=== PATIENT | female | born 1980 | race Caucasian/White ===

== ENCOUNTER 2018-05-30 12:57 | Emergency (ER) | payer OTHER ==
[2018-05-30 13:39] LABS: ABSOLUTE EOSINOPHILS # (AUTO) 0.1 10^3/uL (0.0-0.6); ABSOLUTE LYMPHOCYTES (AUTO) 1.4 10^3/uL (0.5-4.7); ABSOLUTE MONOCYTES (AUTO) 0.5 10^3/uL (0.1-1.4); ABSOLUTE NEUT (AUTO) 7.7 10^3/uL (1.7-8.2); BASOPHILS % (AUTO) 0.2 % (0-2); EOSINOPHILS % (AUTO) 1.3 % (0-6); HEMATOCRIT 42.3 % (36.0-47.0); HEMOGLOBIN 14.2 g/dL (12.0-15.5); LYMPHOCYTES % (AUTO) 14.6 % (13-45); MEAN CORPUSCULAR HEMOGLOBIN 29.4 pg (27.0-33.4); MEAN CORPUSCULAR HGB CONC 33.6 g/dL (32.0-36.0); MEAN CORPUSCULAR VOLUME 88 fl (80-97); MONOCYTES % (AUTO) 5.1 % (3-13); PLATELET COUNT 102 10^3/uL (150-450); RED BLOOD COUNT 4.82 10^6/uL (3.72-5.28); RED CELL DISTRIBUTION WIDTH 13.6 % (11.5-14.0); SEGMENTED NEUTROPHILS % (AUTO) 78.8 % (42-78); TOTAL CELLS COUNTED % (AUTO) 100 %; WHITE BLOOD COUNT 9.7 10^3/uL (4.0-10.5)
[2018-05-30 14:06] LABS: ALANINE AMINOTRANSFERASE 31 U/L (9-52); ALBUMIN 3.2 g/dL (3.5-5.0); ALKALINE PHOSPHATASE 51 U/L (38-126); ANION GAP 10 (5-19); ASPARTATE AMINO TRANSFERASE 27 U/L (14-36); BILIRUBIN,TOTAL 0.6 mg/dL (0.2-1.3); BLOOD UREA NITROGEN 11 mg/dL (7-20); CALCIUM 8.3 mg/dL (8.4-10.2); CARBON DIOXIDE 25 mmol/L (22-30); CHLORIDE 106 mmol/L (98-107); GLUCOSE 86 mg/dL (75-110); POTASSIUM 3.7 mmol/L (3.6-5.0); SODIUM 141.4 mmol/L (137-145); TOTAL PROTEIN 5.5 g/dL (6.3-8.2)
--- NOTE | 2018-05-30 14:27 | RADIOLOGY REPORT (SQ) ---
EXAM DESCRIPTION: CT HEAD WITHOUT COMPLETED DATE/TIME: 05/30/2018 2:16 pm REASON FOR STUDY: seizure first time COMPARISON: None. TECHNIQUE: Axial images acquired through the brain without intravenous contrast. Images reviewed wi th bone, brain and subdural windows. Additional sagittal and coronal reconstructions were generated. Images stored on PACS. All CT scanners at this facility use dose modulation, iterative reconstruction, and/or weight based d osing when appropriate to reduce radiation dose to as low as reasonably achievable (ALARA). [facility]: Dose Right [facility]: CareDose [facility]: Dose Right [facility]: Teradose 4D [facility]: Missingames RADIATION DOSE: CT Rad equipment meets quality standard of care and radiation dose reduction techniq ues were employed. CTDIvol: 53.2 mGy. DLP: 1150 mGy-cm. mGy. LIMITATIONS: None. FINDINGS: VENTRICLES: Normal size and contour. CEREBRUM: No masses. No hemorrhage. No midline shift. No evidence for acute infarction. Normal gra y/white matter differentiation. No areas of low density in the white matter. CEREBELLUM: No masses. No hemorrhage. No alteration of density. No evidence for acute infarction. EXTRAAXIAL SPACES: No fluid collections. No masses. ORBITS AND GLOBE: No intra- or extraconal masses. Normal contour of globe without masses. CALVARIUM: No fracture. PARANASAL SINUSES: No fluid or mucosal thickening. SOFT TISSUES: No mass or hematoma. OTHER: No other significant finding. IMPRESSION: NORMAL BRAIN CT WITHOUT CONTRAST. EVIDENCE OF ACUTE STROKE: NO. COMMENT: Quality ID # [id number]: Final reports with documentation of one or more dose reduction techniques (e.g., Automated exposure control, adjustment of the mA and/or kV according to patient size, use of iterative reconstruction technique) TECHNICAL DOCUMENTATION: JOB ID: [id number] inContact- All Rights Reserved Reading location - IP/workstation name: [email or web address]
--- NOTE | 2018-05-30 14:51 | ER Document Report ---
ED General - General Chief Complaint: Probable Seizure Stated Complaint: GENERAL WEAKNESS Time Seen by Provider: 05/30/18 13:17 Mode of Arrival: Stretcher Information source: Patient TRAVEL OUTSIDE OF THE [place] IN LAST 30 DAYS: No - HPI Patient complains to provider of: weakness Onset: Other - This is a healthy 37-year-old female who presents after having donated plasma today, while she was donating plasma she had an episode while they were attempting to initiate administration of fluids that she became lightheaded, subsequently she passed out she was told by onlookers that she had an episode of shaking thereafter. She regained consciousness slowly became alert. She is never had any episodes like this in the past except for a single episode of fainting many years prior. She is never had any other health problems , denies any history of seizure, denies any history of stroke, denies any history of thromboembolic events in the past, no arrhythmias or known cardiac issues. She denies any fevers chills shortness of breath abdominal pain diarrhea constipation dysuria did not bite her tongue did not lose continence of her urine. - Related Data Allergies/Adverse Reactions: No Known Allergies Allergy (Verified 05/30/18 13:33) Past Medical History - General Information source: Patient - Social History Smoking Status: Never Smoker Chew tobacco use (# tins/day): No Frequency of alcohol use: Rare Drug Abuse: None Family History: None Patient has suicidal ideation: No Patient has homicidal ideation: No Renal/ Medical History: Denies: Hx Peritoneal Dialysis Review of Systems - Review of Systems -: Yes All other systems reviewed and negative Physical Exam - Vital signs Vitals: Temp Pulse Resp BP Pulse Ox 97.5 F 89 16 121/75 100 05/30/18 13:04 05/30/18 13:04 05/30/18 13:04 05/30/18 13:04 05/30/18 13:04 - General General appearance: Appears well In distress: None - HEENT Head: Normocephalic Eyes: Normal Conjunctiva: Normal Cornea: Normal Extraocular movements intact: Yes Eyelashes: Normal Pupils: PERRL - Respiratory Respiratory status: No respiratory distress Chest status: Nontender Breath sounds: Normal Chest palpation: Normal - Cardiovascular Rhythm: Regular Heart sounds: Normal auscultation Murmur: No - Abdominal Inspection: Normal Distension: No distension Tenderness: Nontender Organomegaly: No organomegaly - Back Back: Normal - Extremities General upper extremity: Normal inspection, Nontender, Normal ROM, Normal strength General lower extremity: Normal inspection, Nontender, Normal ROM, Normal strength - Neurological Neuro grossly intact: Yes Cognition: Normal Orientation: AAOx4 [place] Coma Scale Eye Opening: Spontaneous [place] Coma Scale Verbal: Oriented [place] Coma Scale Motor: Obeys Commands [place] Coma Scale Total: 15 Speech: Normal Cranial nerves: Normal Cerebellar coordination: Normal Motor strength normal: LUE, RUE, LLE, RLE Additional motor exam normals: Equal time clerk Babinski reflex: Normal (flexor plantar) Sensory: Normal - Psychological Associated symptoms: Normal affect Course - Re-evaluation Re-evalutation: 05/30/18 16:17 37-year-old female that presents for evaluation of an episode of syncope. She is neurologically intact at this time though there was some evidence that she may have shaken after the event. In examination she is however well-appearing. She is at her normal level of functioning. Never had anything like this in the past. We will obtain EKG, CT of the head labs. EKG is nondiagnostic CT of the head is normal labs and chemistry are reassuring. Given that this patient functionally has no obvious evidence for an underlying cause believe it is likely related to her donation of plasma which likely caused her to be briefly hypotensive or vagal. She is neurologically intact at this time, passed a trial of ambulation without any assistance in the emergency department. We will plan for this patient undergo discharge with return precautions and encouraged follow-up with her primary physician. - Vital Signs Vital signs: Temp Pulse Resp BP Pulse Ox 98.4 F 89 22 H 100/68 97 05/30/18 14:52 05/30/18 13:04 05/30/18 14:52 05/30/18 14:52 05/30/18 14:52 - Laboratory Result Diagrams: 05/30/18 13:25 05/30/18 13:25 Laboratory results interpreted by me: 05/30/18 05/30/18 13:25 13:25 Plt Count 102 L Seg Neutrophils % 78.8 H Calcium 8.3 L Total Protein 5.5 L Albumin 3.2 L Discharge - Discharge Clinical Impression: Syncope and collapse, Plasma donor Condition: Good Disposition: HOME, SELF-CARE Instructions: Syncopal Episode ([facility]) Additional Instructions: You were seen today in the emergency department after he had an episode while donating plasma. It appears likely that your episode was a fainting episode. You had a CAT scan of your head as well as blood tests which were normal. You should avoid any activities which would be dangerous if he did them by yourself. If you have any return of numbness or weakness, loss of consciousness or other symptoms he should return to the emergency room as it may be a more serious condition.
[2018-05-30 15:00] VITALS: BP 100/68
== END 2018-05-30 15:21 | disposition home or self-care (01) ==
LOC: ER 12:57
DX: R55 Syncope and collapse (principal); R53.1 Weakness
CPT/HCPCS: 36415; 70450; 80053; 84702; 85025; 99284